=== PATIENT | male | born 1935 | race Caucasian/White ===

== ENCOUNTER → 2020-05-03 | Outpatient (CLI) | payer OTHER | LOC: LAB 14:35 | PROVIDERS: ATTEND Surgery Vascular Surgery | DX: Z20.828 Contact with and (suspected) exposure to other viral communicable diseases (principal) ==

== ENCOUNTER 2020-05-25 05:56 | Inpatient (IN) | payer OTHER ==
[2020-05-22 13:32] LABS: ABSOLUTE NEUTROPHILS 5.7 thou/uL (1.4-8.2); BASOPHILS 1.1 % (0.0-2.0); EOSINOPHILS 5.6 % (0.0-3.0); HEMATOCRIT 45.9 % (42.0-52.0); HEMOGLOBIN 14.8 gm/dL (14.0-18.0); LYMPHOCYTES 11.6 % (24.0-44.0); MCH 28.6 pg (26.0-34.0); MCHC 32.3 g/dL (28.0-37.0); MCV 88.6 fL (80.0-100.0); MONOCYTES 8.4 % (1.0-8.0); PLATELET COUNT 275 thou/uL (150-400); POLYS 73.3 % (36.0-66.0); RBC 5.17 mil/uL (4.50-6.00); RDW 14.6 % (10.5-14.5); WBC 7.8 thou/uL (4.0-11.0)
[2020-05-22 13:43] LABS: URINE BILIRUBIN NEGATIVE (Negative); URINE BLOOD 1+ (Negative); URINE CLARITY CLEAR; URINE COLOR YELLOW; URINE GLUCOSE-RANDOM* NEGATIVE (Negative); URINE KETONES NEGATIVE (Negative); URINE LEUKOCYTES-REFLEX NEGATIVE (Negative); URINE NITRITE-REFLEX NEGATIVE (Negative); URINE PROTEIN (DIPSTICK) NEGATIVE (Negative); URINE UROBILINOGEN 0.2 E.U./dl (0.2-1.0)
[2020-05-22 13:46] LABS: ALBUMIN 3.6 g/dL (3.4-5.0); CALCIUM 9.2 mg/dL (8.5-10.1); CREATININE 1.3 mg/dL (0.7-1.3); POTASSIUM 4.1 mmol/L (3.5-5.1); TOTAL BILIRUBIN 0.6 mg/dL (0.2-1.0); TOTAL PROTEIN 6.4 g/dL (6.4-8.2)
[2020-05-22 13:47] LABS: APTT 24.8 Seconds (24.5-32.8)
[2020-05-22 14:03] LABS: BACTERIA-REFLEX None Seen /HPF (None Seen); CASTS None Seen /LPF (None Seen); CRYSTALS None Seen /LPF (None Seen); SQUAMOUS None Seen /LPF (0-3); URINE RBC 0-2 Rare /HPF (0-2); URINE WBC-REFLEX 0-5 Rare /HPF (0-5)
--- NOTE | 2020-05-22 16:04 | EKG ---
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 GONZALEZ : 1935 Requested By: Gino Scruggs Order Number: [id number] MD: Truong Hernandez Measurements Intervals Berkey Rate: 84 P: -13 AL: 207 QRS: -45 QRSD: 96 T: 58 QT: 387 QTc: 458 Interpretive Statements Sinus rhythm Left anterior fascicular block Abnormal R-wave progression, early transition No previous ECG available for comparison Electronically Signed On 05-22-2020 16:04:01 RADIO STATION MANAGER by Truong Hernandez [email or web address] <ELECTRONICALLY SIGNED> By: Truong Hernandez MD, [facility] 05/22/20 1604 1325 1325 Truong Hernandez MD, FACC /EPI
[~2020-05-25] VITALS: Ht 182.9 cm; Wt 96.9 kg
[2020-05-25] VITALS (8 sets, daily range): BP systolic 94–137; BP diastolic 53–72
--- NOTE | ~2020-05-25 | O ---
[facility] [place] [address] OPERATIVE REPORT Name: MARIYA HOYOS JR Room #: 150-2 ADM IN M.R.#: [id number] Admission: 05/25/20 Attend Phys: Gino Scruggs MD Discharge: Date of : 37 Report #: [id number] THIS REPORT FOR: cc: Lio Tenorio MD,Lio Scruggs,Gino Oro MD ~ DATE OF SERVICE: 05/25/2020 PREOPERATIVE DIAGNOSIS: Cancer, right lower lobe of lung. POSTOPERATIVE DIAGNOSIS: Cancer, right lower lobe of lung. OPERATION: Bronchoscopy, right thoracotomy with lower lobectomy and lymph node resection. SURGEON: Gino Scruggs MD SNACK STEWARDESS: SILVIA Henry. ANESTHESIA: General. 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 PET scan shows no activity in any other areas. The patient has satisfactory pulmonary function and performance status for resection. FINDINGS AND TECHNIQUE: After general anesthesia was established, flexible diagnostic bronchoscopy was performed. The patient had white thick secretions throughout, but no evidence of tracheal or bronchial involvement. A double lumen endotracheal tube was placed and its position ascertained under bronchoscopic guidance. Exposure was obtained through right posterolateral thoracotomy entering the fifth interspace and using a rib sparing, nerve sparing approach. The gross pathologic findings were consistent with the x-ray and that the tumor appeared to be an infiltrative tumor in the lower lobe peripherally and inferiorly was very thickened and friable, likely due to mucinous involvement. The pulmonary ligament was divided and this was continued in the pleural reflection posteriorly. The fissure was developed to expose the interlobar pulmonary artery. Pulmonary arterial branches to the lower lobe were divided. The fissure was completed posteriorly. Pulmonary vein to the lower lobe was stapled and divided. The bronchus was cirum-dissected and stapled and divided after adequate testing. [facility] [address] [place] [address] OPERATIVE REPORT Name: MARIYA HOYOS Room #: 150-2 ADM IN M.R.#: [id number] Admission: 05/25/20 Attend Phys: Gino Scruggs MD Discharge: Date of : 37 Report #: [id number] The remaining rudimentary fissure between the middle and lower lobe was stapled and divided and the lobe was submitted for pathologic consideration. Hemostasis was ascertained in the hilum. Lymph nodes were dissected in the pulmonary ligament and subcarinal and azygous regions. The bronchial stump was tested and found to be secure. Chest was irrigated with antibiotic solution and a chest tube was brought through separate stab wound, chest was closed to maintain the rib sparing, nerve sparing approach. The patient was taken to the recovery area in good condition having tolerated the procedure well. All counts reported as correct. By: 1041 [id number] Gino Scruggs MD /nt
[~2020-05-25 05:56] MED LIST: LIPITOR 10 MG10 M1 PO; LISINOPRIL-HCT1 EAC2 PO; MELOXICAM15 MG PO; OMEPRAZOLE 20 M20 M1 PO; PROAIR HFA8.5 GM INH; STIOLTO RESPIMAT4 GM INH; VITAMIN D3100 MCG PO
--- NOTE | 2020-05-25 19:13 | NUR ---
PATIENT ADMITTED TO ICU ROOM 250 POST THORACOTOMY/LOBECTOMY. PLACE ON MONITOR. CHEST TO SET TO -20 SUCTION. 100CC OUTPUT TOTAL FOR SHIFT. LEFT RADIAL SHANNON SETUP AND ZEROED. INITIATED FENTANYL OPERATIONS PROFESSIONAL PUMP. PATIENT VOICES PAIN IS CONTROLLED WELL. TITRATED OFF CARDENE GTT. REPORT GIVEN TO NIGHT RN.
[2020-05-26] VITALS (10 sets, daily range): BP systolic 97–136; BP diastolic 50–78
[2020-05-26 05:34] LABS: BUN 13 mg/dL (7-18); CHLORIDE 121 mmol/L (98-107); CREATININE 0.6 mg/dL (0.7-1.3); GLUCOSE 101 mg/dL (74-106); MCH 29.3 pg (26.0-34.0); MCHC 32.7 g/dL (28.0-37.0); MCV 89.7 fL (80.0-100.0); RBC 2.17 mil/uL (4.50-6.00); RDW 14.3 % (10.5-14.5); SODIUM 147 mmol/L (136-145); WBC 5.4 thou/uL (4.0-11.0)
[2020-05-26 05:47] LABS: HEMATOCRIT 19.5 % (42.0-52.0); HEMOGLOBIN 6.4 gm/dL (14.0-18.0)
[2020-05-26 05:56] LABS: ANION GAP 15 mmol/L (7-16)
[2020-05-26 05:59] LABS: CALCIUM < 5.0 mg/dL (8.5-10.1); CO2 11 mmol/L (21-32); POTASSIUM 1.7 mmol/L (3.5-5.1)
[2020-05-26 07:09] LABS: HEMATOCRIT 39.5 % (42.0-52.0); MCH 29.2 pg (26.0-34.0); MCHC 32.5 g/dL (28.0-37.0); MCV 89.8 fL (80.0-100.0); RBC 4.4 mil/uL (4.50-6.00); RDW 14.9 % (10.5-14.5); WBC 10.5 thou/uL (4.0-11.0)
[2020-05-26 07:13] LABS: HEMOGLOBIN 12.9 gm/dL (14.0-18.0)
[2020-05-26 07:28] LABS: CREATININE 1.6 mg/dL (0.7-1.3); POTASSIUM 4.3 mmol/L (3.5-5.1)
[2020-05-26 07:29] LABS: CALCIUM 8.9 mg/dL (8.5-10.1)
--- NOTE | 2020-05-26 07:31 | NUR ---
PATIENT AWAKE MOST OF THE NIGHT. CHEST TUBE OUTPUT 250ML, UOP 700ML. CREPITUS RIGHT SIDE AROUND CHEST TUBE REPORTED TO DAWOOD HERNANDEZ MD HERE ROUNG ON PATIENT. LEAKING AROUND INSERTION SITE, DRESSING REINFORCED. PATIENT A/OX4 AND UP EARLY THIS MORNING SITTING ON CHAIR WITH ASSIST X2.
--- NOTE | 2020-05-26 11:20 | NUR ---
PT UP TO CHAIR. TOLERATING WELL. REPORTS MINIMAL PAIN THIS AM. 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 HYDROCODONE GIVEN X1. TOLERATING PO WELL. AMBULATING WITH PHYSICAL THERAPY THIS AM. DRESSING CHANGED TO CT SITE. SMALL AMOUNT OF SUB Q AIR NOTED AT SITE AND SILVIA JONES INFORMED. LEFT ROSELYN ORTEGA DISCONTINUED. ORDER TO TRANSFER TO CCU. REPORT CALLED TO [facility].
--- NOTE | 2020-05-26 16:52 | NUR ---
PT ADMITTED RELATED TO R THORACOTOMY/LOBECTOMY. PT VILLA R CT. PT IS S/P BRONCHOSCOPY. PT IS FROM HOME HE REPORTS LIVING IN SINGLE LEVEL HOME WITH S.O., 2 MISA, NO PRIOR DEVICE USE, VERY INDEPENDENT AND ACTIVE. ANTICPATE THAT PT WILL PROGRESS TO BE ABLE TO RETURN HOME ONCE MEDICALLY STABLE. CM ATTEMPTED PC TO PT'S ROOM THIS DAY WITH NO RESPONSE. CM TO FOLLOW INDICATED WITH DC PLANNING.
--- NOTE | 2020-05-26 19:43 | NUR ---
PT. ARRIVED AT FLOOR AT 1200 FROM ICU; PT. AOX4; ST. LOW PAIN; PRN PAIN MEDICATION GIVEN BEFORE TRANSFER; REFUSED PRN PAIN MEDICATION; EDUCATED ABOUT FALL PRECAUTIONS; ST. UNDERSTANDING; BG ON THE 200s; DAWOOD NOTIFIED; ORDERS ON PLACED; AFTER LUNCH PT. C/O SOB; 02 SAT BETWEEN 94-96%; PERFORMED IS; BELLY DISTENDED; ST. NOT ABLE TO PASS FLATUS; NO CHANGED ON LUNG SOUNDS; ASSESSED CT; CONECTED; NO LEAKING OVER CT; DAWOOD NOTIFIED; PRN MIRALAX GIVEN; PRN PAIN MEDICATIONS GIVEN; RE-ASSESSMENT PT. ST. ABLE TO TAKE DEEP BREATHS; ST. "FEELING BETTER"; PER REPORT WALLACE D/C BEFORE TRANSFER; PT. ABLE TO VOID 50 ML AT 1835; BLADDER SCANN SHOWED 360 ML; PHYSICIAN NOTIFIED; ORDERS RECEIVED; PASSED ON REPORT; CT DRAIN 80 ML; SR ON THE MONITOR; REMAINED ABOUT IS; ST. UNDERSTANDING; ASSESSMENT CHARGED; FOLLOWING POC; PASSED ON REPORT;
--- NOTE | 2020-05-27 03:49 | NUR ---
Assumed pt care at 0000. Pt is stable. No sign of distress noted in pt. Pt is stable through the night. Scheduled meds administered to pt. Wound care dressing completed. Repositioning. No acute events overnight. Continue to monitor. No further needs at this time.
--- NOTE | 2020-05-27 03:57 | NUR ---
Assumed pt care at 0150. No sign of distress noted. Chest tube in place. Pt is alert and oriented. Denies pain at this time. Pt is stable through the night. No acute events overnight. Continue to monitor. No further needs at this time.
[2020-05-27 04:45] VITALS: BP 129/64
[2020-05-27 07:06] VITALS: BP 141/63
[2020-05-27 10:57] LABS: CALCIUM 8.6 mg/dL (8.5-10.1); CREATININE 1.2 mg/dL (0.7-1.3); POTASSIUM 4.2 mmol/L (3.5-5.1)
[2020-05-27 11:13] VITALS: BP 118/63
[2020-05-27 15:13] VITALS: BP 136/59
[2020-05-27 20:15] VITALS: BP 118/67
--- NOTE | 2020-05-27 20:16 | NUR ---
ASSUMED CARE PT SHIFT CHANGE. ASSESSMENTS CHARTED.MEDS GIVEN PER MAR. VSS. C/O PAIN MANAGED WITH PO PAIN MEDS. CHEST TUBE REMAINS INTACT AND TO -20 SUCTION. DENIES SOB. PT UP WALKING TOLERATING WELL. PLAN FOR HOME ONCE MEDICALLY STABLE. SITTING UP IN CHAIR DENIES NEEDS/CONCERNS. CONTINUING TO MONITOR WHILE FOLLOWING POC. REPORT PASSED TO LUZ MALIN.
[2020-05-28] VITALS (8 sets, daily range): BP systolic 123–128; BP diastolic 64–72
--- NOTE | 2020-05-28 05:48 | NUR ---
pt resting quietly in room ct to suction, prn pain med given for incisional pain, vss, will con't to monitor per ppoc.
--- NOTE | 2020-05-28 18:36 | NUR ---
PT CARE ASSUMED AT 0700. ASSESSMENTS CHARTED. MEDICATION CHARTED. RH IV. LH IV. TOLIET/URINAL. CHEST TUBE REMOVED AT [address] SMITH. ACHS. SINUS RHYTHM 1ST DEG AV BLOCK.
[2020-05-29 04:41] VITALS: BP 124/74
--- NOTE | 2020-05-29 06:43 | NUR ---
PT RESTING QUIETLY IN BED, INCISIONAL DRESSING INTACT, PRN PAIN MED GIVEN FOR C/O INCISIONAL PAIN, VOIDING PER URINAL, VSS, WILL CON'T TO MONITOR PER PPOC.
[2020-05-29 08:29] VITALS: BP 124/70
[2020-05-29 12:09] VITALS: BP 121/60
[2020-05-29 16:37] VITALS: BP 117/52
[2020-05-29 20:45] VITALS: BP 142/104
[2020-05-30 05:12] VITALS: BP 143/64
--- NOTE | 2020-05-30 07:45 | NUR ---
ASSUME CARE 1900. PT/VITALS STABLE. INTERMITTENT INCISIONAL PAIN. GOOD ENDURANCE TO ACTIVITY. PROGRESSING WELL WITH POC. INCISION CDI/WITH DRESSING IN PLACE AND INTACT. ASSESSMENT CHARTED. PLAN IS POSSIBLE DISCHARGE TODAY. WILL CONTINUE TO MONITOR AND FOLLOW WITH POC
[2020-05-30 08:00] VITALS: BP 126/64
[2020-05-30 10:43] VITALS: BP 126/64
--- NOTE | 2020-05-30 12:25 | NUR ---
AAOX4. DENIES CP, SOA. DISCHARGING TODAY. TELEMETRY SECURED.
--- NOTE | 2020-05-30 17:09 | PATH ---
[facility] [address] [place] [address] PATHOLOGY RPT PROCEDURE Name: MARIYA MOYA Room #: 202-P [facility] IN M.R.#: [id number] Admission: 05/25/20 Date of : 37 Discharge: 05/30/20 Report #: [id number] Path Case #: [id number] [facility] Accession Number: [id number] . 01 Material submitted: . PART A: lymph node - 11 LYMPH NODE PART B: lymph node - LEVEL 9 LYMPH NODE PART C: lung - RIGHT LOWER LOBE LUNG. Modifiers: right, lower PART D: lymph node - LEVEL 7 LYMPH NODE PART E: lymph node - 4R NODE PART F: lymph node - LEVEL 4 NODE . 01 Clinician provided ICD-10: C34.91 . 01 Clinical history: . THORACOTOMY BRONCHOSCOPY LOBECTOMY LUNG RIGHT LUNG MASS . 02 Diagnosis: A. Lymph node (1), 11 lymph node, biopsy: - One lymph node with reactive changes including pigmented macrophages; negative for malignancy (0/1). . B. Lymph node (1), level 9 lymph node, biopsy: - One lymph node with reactive changes including pigmented macrophages; negative for malignancy (0/1). . C. Lung, right lower lobe lung, lobectomy: - INVASIVE ADENOCARCINOMA, PREDOMINANTLY ACINAR SUBTYPE MEASURING 13.8 CM IN GREATEST DIMENSION, (SEE SYNOPTIC REPORT BELOW AND COMMENT) - VISCERAL PLEURAL INVASION PRESENT. - Bronchial and vascular margins negative and 1.5 cm away from the closest tumor. - Three lymph nodes with reactive changes including pigmented macrophages; negative for malignancy (0/3). . D. Lymph nodes (8), level 7 lymph nodes, dissection: - Eight lymph nodes with reactive changes including pigmented macrophages; negative for malignancy (0/8). . E. Lymph node (1), 4R lymph node, biopsy: - One lymph node with reactive changes including pigmented macrophages; negative for malignancy (0/1). . F. Soft tissue, level 4 lymph node, biopsy: [address] [address] PATHOLOGY RPT PROCEDURE Name: ROMAINMARIYA LINDA Room #: 202-P DIS IN M.R.#: [id number] Admission: 05/25/20 Date of : 37 Discharge: 05/30/20 Report #: [id number] Path Case #: [id number] - Reactive changes along with mild congestion. - Negative for malignancy. - No lymph node tissue present. (IUV:carolina; 05/30/2020) . . Surgical Pathology Cancer Case Summary . Protocol Posting Date: June 2019 . LUNG: Procedure- Lobectomy Specimen Laterality- Right Tumor Site- Lower lobe of lung Tumor Size- 13.8 cm in greatest dimensions Tumor Focality- Single tumor Histologic Type- Invasive adenocarcinoma, acinar predominant Other subtypes present: lepidic (10 percent), mucinous (20 percent) and papillary (10 percent) Histologic Grade- G2: Moderately differentiated Spread Through Air Spaces- Identified Visceral Pleura Invasion- Identified Lymphovascular Invasion- Not identified Direct Invasion of Adjacent Structures- No adjacent structures present Margins examined: Bronchial, Vascular and Visceral Pleura Margin involved- Visceral pleural margin Margins uninvolved - Bronchovascular ; distance of invasive carcinoma from closest margin (centimeters): 1.5 cm Treatment Effect- No known presurgical therapy Regional Lymph Nodes- Number of Lymph Nodes Examined: 14 Specify yusuf station(s) examined: 11R Lymph node, Level 9 Lymph node, Hilar Lymph nodes, Level 7 Lymph node, 4R Lymph node, Level 4 Lymph node. . . Pathologic Stage Classification (pTNM, AJCC 8th Edition) . TNM Descriptors- None Primary Tumor (pT) pT4: Tumor >7 cm in greatest dimension; or tumor of any size invading one or more of the following: diaphragm, mediastinum, heart, great vessels, trachea, recurrent laryngeal nerve, esophagus, vertebral body or loulou; or separate tumor nodule(s) in an ipsilateral lobe different from that of the primary Regional Lymph Nodes (pN) pN0: No regional lymph node metastasis Distant Metastasis (pM): pMx (unknown) P 05/30/2020 1632 Local . 02 [facility] [address] [place] [address] PATHOLOGY RPT PROCEDURE Name: MARIYA MOYA JR Room #: 202-P [facility] IN M.R.#: [id number] Admission: 05/25/20 Date of : 37 Discharge: 05/30/20 Report #: [id number] Path Case #: [id number] Comment: Examination shows invasive adenocarcinoma, predominantly of acinar subtype associated with several foci of invasion within the sampled sections of the tumor identified grossly which measured 2.0 cm. In addition, abundant clear viscous material along with a pale monaco parenchyma measured 13.8 x 12.2 x 6.0 cm. Random sections submitted for microscopic examination (C7 to C9) showed adenocarcinoma with predominantly acinar architecture; however, in addition included papillary (approximately 10%), mucinous (20%), as well as focal lepidic subtypes. The pleural surface shows focal disruption along with biopsy site changes. A properly controlled VVG elastin special stain is performed on block C5 and it shows loss of the elastin membrane. TTF-1 immunohistochemical stain with appropriate controls is performed on blocks C4 and C5. It shows individual tumor cells invading through the visceral pleural surface and in addition, single individual tumor cells are identified on the pleural surface as well. . Findings of this case are conveyed to Dr. Gino Scruggs in the evening of 05/29/2020. (IUV:carolina; ) . 02 Electronically signed: . Betsy Yoon MD, Pathologist NPI- [id number] . 01 Gross description: . A. The specimen is received in formalin, labeled "Mariya Moya Jr., 11R lymph node". Received is a segment of anthracotic tissue measuring 1.4 x 0.9 x 0.5 cm in greatest dimensions. Sectioning reveals a single lymph node measuring 0.6 cm in maximum dimensions. The specimen is submitted entirely in cassette A1. . B. The specimen is received in formalin, labeled "Mariya Moya Jr., level 9 lymph node". Received is a segment of taylor-brown to anthracotic tissue measuring 2.5 x 1.0 x 0.5 cm in greatest dimensions. Dissection and palpation of the specimen reveals a single lymph node measuring 1.2 cm in maximum dimensions. The lymph node is bisected and entirely submitted in cassette B1. . C. The specimen is received in formalin, labeled "Mariya Moya Jr., right lower lobe lung". Received is a 376 g lobectomy specimen measuring 14.0 x 12.2 x 6.0 cm in greatest dimensions. The surgical margin is stapled. The bonnie are removed and the new margin is inked black. The pleural surface is pale monaco to light brown and smooth in appearance. Opposite the surgical resection margin, there is an area of puckering measuring 2.8 x 2.7 cm. The opposing pleural surface is inked blue. Sectioning reveals a pale monaco, firm mass in the area of puckering, measuring 2.0 x 1.5 x 1.2 cm, which grossly abuts the inked pleural [address] [address] PATHOLOGY RPT PROCEDURE Name: MARIYA MOYA JR Room #: 202-P DIS IN ..#: [id number] Admission: 05/25/20 Date of : 37 Discharge: 05/30/20 Report #: [id number] Path Case #: [id number] surface, and is 6.1 cm from the bronchial margin. The mass is surrounded by pale monaco parenchyma (possible tumor) over an area measuring 13.5x 12.2 x 6.0 cm. A moderate amount of clear viscous material is noted throughout the light monaco parenchyma/possible tumor as, well as possibly within the mass. This area encompasses approximately 95% of the specimen. The light monaco parenchyma/possible tumor grossly abuts the pleural surface, and comes within 1.5 cm of the bronchial margin and hilar aspect. A slight amount of normal red-brown lung parenchyma is identified. Palpation and dissection of the hilar aspect reveals no grossly identified lymph nodes. The specimen is submimitted representatively as follows: . C1-C5 entire firm mass C6 Bronchovascular margin C7-C9 field representatives director sections of light monaco parenchyma C10 field representatives director section of normal lung parenchyma. . D. The specimen is received in formalin, labeled "Mariya Moya Jr., level 7 lymph node". Received is a segment of yellow-monaco to anthracotic soft tissue measuring 3.6 x 1.3 x 0.5 cm in greatest dimensions. Dissection and palpation of the specimen reveals four possible lymph nodes ranging in size from 0.3 to 1.5 cm in maximum dimensions. The specimen is committed representatively as follows: . D1 intact possible lymph nodes D2 one bisected lymph node. . E. The specimen is received in formalin, labeled "Mariya Moya Jr., 4R node". Received is a segment of yellow-monaco to anthracotic tissue measuring 1.0 x 0.6 x 0.2 cm in greatest dimensions. Dissection and palpation of the specimen reveals a single lymph node measuring 0.3 cm in maximum dimensions. The lymph node is submitted intact in cassette E1. . F. The specimen is received in formalin, labeled "Mariya Moya Jr., level 4 node". Received is a segment of yellow-monaco to light brown tissue measuring 0.5 x 0.4 x 0.1 cm in greatest dimensions. A lymph node is not grossly discernible. The specimen is submitted entirely in cassette F1. (CAA; 05/26/2020) QAC/QAC 05/29/2020 1519 Local . 02 Pathologist provided ICD-10: C34.31 . 02 CPT . 732345, 932223, 540115, 585660, 415297, 199321, [id number] Specimen Comment: A courtesy copy of this report has been sent to [phone] Specimen Comment: Report sent to Performed at: [address] [address] PATHOLOGY RPT PROCEDURE Name: MARIYA MOYA Room #: 202-P DIS IN M.R.#: [id number] Admission: 05/25/20 Date of : 37 Discharge: 05/30/20 Report #: [id number] Path Case #: [id number] [address] [facility] [address], [place], [place] [id number] MD Jae Brown MD Phone: [phone] Performed at: [address] [facility] [address], [place], [place] [id number] MD Betsy Yoon MD Phone: [phone]
== END 2020-05-30 12:10 | disposition home or self-care (01) | DRG 166 ==
LOC: TBA 05:56 → ICU 05:56 → PRE 09:39 → ICU 12:14 → PRE 12:17 → 2N 05-26 12:08 → ENTRNSPT 05-30 12:00 → 2N 05-30 12:10
PROVIDERS: Hospitalist; Physician Assistant; ADMIT Surgery Vascular Surgery; ATTEND Surgery Vascular Surgery
DX: C34.31 Malignant neoplasm of lower lobe, right bronchus or lung (principal); N17.0 Acute kidney failure with tubular necrosis; I71.4 Abdominal aortic aneurysm, without rupture; K21.9 Gastro-esophageal reflux disease without esophagitis; I10 Essential (primary) hypertension; J43.9 Emphysema, unspecified; D64.9 Anemia, unspecified; E78.5 Hyperlipidemia, unspecified; Z20.822 Contact with and (suspected) exposure to COVID-19; Z90.49 Acquired absence of other specified parts of digestive tract; Z98.41 Cataract extraction status, right eye; Z87.891 Personal history of nicotine dependence; Z79.899 Other long term (current) drug therapy
CPT/HCPCS: 10078; 10081; 50010; 50101; 50386; 50417; 50455; 50497; 50739; 50740; 51301; 52191; 52301; 52303; 54118; 56455; 56524; 56525; 56526; 56527; 56528; 62110; 62900; 65020; 65105; 70005